=== PATIENT | male | born 1990 | race Caucasian/White ===

== ENCOUNTER 2019-04-07 14:21 | Emergency (ER) | payer OTHER ==
[2019-04-07 14:45] VITALS: BP 118/71
--- NOTE | 2019-04-07 14:52 | UC ---
Abdominal Pain Male HPI - HPI Summary HPI Summary: 28 yo male presents with green stools. He tells me that over the last 2-3 days he has noticed that his stool has a green tint. Today his symptoms resolved and there was no more green tint. He has a BM at least twice a day. He is most concerned that this is due to his work. 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 He has worked there a year and a half with no issues, but states he remembers months ago a co- worker that had a "stomach infection from the chemicals at work". He denies fever, chills, recent illness, new medications, abdominal pain, n/v/d/c, dysuria. He states his diet has not changed or increased in leafy green foods recently. He does mention that over the last 4-5 years he feels his urine stream is weaker than before. He has never had this evaluated, but is concerned because his grandfather had prostate cancer. - History of Current Complaint Chief Complaint: UCGI Stated Complaint: STOOL Time Seen by Provider: 04/07/19 14:52 Hx Obtained From: Patient Onset/Duration: Sudden Onset Severity Currently: None Pain Intensity: 0 - Allergies/Home Medications Allergies/Adverse Reactions: Allergies Allergy/AdvReac Type Severity Reaction Status Date / Time Sulfa (Sulfonamide Allergy Anaphylatic Verified 04/07/19 14:42 Antibiotics) Shock Home Medications: Home Medications NK [No Home Medications Reported] 04/07/19 [History Confirmed 04/07/19] PMH/Surg Hx/FS Hx/Imm Hx - Additional Past Medical History Additional PMH: None - Surgical History Surgical History: Yes Surgery Procedure, Year, and Place: ear tubes - Family History Known Family History: Positive: Other - Prostate cancer - Social History Occupation: Employed Full-time Lives: With Family Alcohol Use: None Substance Use Type: None Smoking Status (MU): Light Every Day Tobacco Smoker Amount Used/How Often: 1/2ppd Review of Systems All Other Systems Reviewed And Are Negative: Yes Constitutional: Positive: Negative Skin: Positive: Negative Respiratory: Positive: Negative Cardiovascular: Positive: Negative Gastrointestinal: Positive: Other - Green stool Genitourinary: Positive: Other - Weak urine stream Neurovascular: Positive: Negative Neurological: Positive: Negative Psychological: Positive: Negative Physical Exam - Summary Physical Exam Summary: GENERAL: NAD. WDWN. No pain distress. SKIN: No rashes, sores, lesions, or open wounds. NECK: Supple. Nontender. No lymphadenopathy. CHEST: CTAB. No r/r/w. No accessory muscle use. Breathing comfortably and in no distress. CV: RRR. Without m/r/g. Pulses intact. Cap refill <2seconds ABDOMEN: Soft. NTTP. No distention or guarding. No CVA tenderness. Bowel sounds present NEURO: Alert. PSYCH: Age appropriate behavior. Triage Information Reviewed: Yes Vital Signs: Initial Vital Signs Temp 98.9 F 04/07/19 14:38 Pulse 75 04/07/19 14:38 Resp 18 04/07/19 14:38 BP 118/71 04/07/19 14:38 Pulse Ox 100 04/07/19 14:38 Vital Signs Reviewed: Yes Abd Pain Male Course/Dx - Course Course Of Treatment: He is well appearing, afebrile, and exam is WNL. His green stools have improved today and he states his stool was normal this morning. Suspect a viral illness or diet related etiology. Will have him complete stool cultures for further eval. Regarding his years of subjective weak urine stream, will refer him to Urology for further eval. - Differential Dx/Clinical Impression Provider Diagnosis: Green stool, Weak urine stream Discharge - Sign-Out/Discharge Documenting (check all that apply): Patient Departure All imaging exams completed and their final reports reviewed: No Studies - Discharge Plan Condition: Stable Disposition: HOME Referrals: No Primary Care Phys,NOPCP [Primary Care Provider] - Mervin Thurston MD [Medical Doctor] - As Soon As Possible Additional Instructions: If you develop a fever, shortness of breath, chest pain, new or worsening symptoms - please call your PCP or go to the ED immediately. 1) Please complete the stool cultures as soon as possible 2) I recommend that you call Urology at the number below to schedule an appointment regarding your decreased urine stream - Billing Disposition and Condition Condition: STABLE Disposition: Home - Attestation Statements Provider Attestation: I was available for consult. This patient was seen by the YONATAN. The patient was not presented to, seen by, or examined by me. -Sherrie
== END 2019-04-07 15:30 | disposition home or self-care (01) ==
LOC: UCEAST 14:21
DX: R19.5 Other fecal abnormalities (principal); R39.12 Poor urinary stream; Z80.42 Family history of malignant neoplasm of prostate; F17.210 Nicotine dependence, cigarettes, uncomplicated
CPT/HCPCS: 99211; G0463

== ENCOUNTER 2019-09-25 09:54 | Emergency (ER) | payer OTHER ==
[2019-09-25 10:14] VITALS: BP 107/72
--- NOTE | 2019-09-25 10:42 | UC ---
Back Pain HPI - HPI Summary HPI Summary: 28 yo male presents with back pain. He tells me that over the last 2 weeks he has been having pain in his left lower back that is worse with bending over and lifting. He is concerned it is his kidney. He has not taken anything OTC for his symptoms. Denies radiation of pain, numbness, tingling, saddle anesthesia, loss of bowel/bladder control, dysuria, hematuria, or specific injury. He states that he does a lot of lifting at work, but does not recall a specific injury. When asked why he is concerned it is his kidney, he states because the pain is "in that area". Has never had any kidney stones or issues in the past. Denies abdominal pain. - History of Current Complaint Chief Complaint: UCGU Stated Complaint: BACK PAIN Time Seen by Provider: 09/25/19 10:42 Hx Obtained From: Patient Onset/Duration: Gradual Onset Severity Initially: Moderate Severity Currently: Moderate Pain Intensity: 7 Pain Scale Used: 0-10 Numeric - Allergies/Home Medications Allergies/Adverse Reactions: Allergies Allergy/AdvReac Type Severity Reaction Status Date / Time Sulfa (Sulfonamide Allergy Anaphylatic Verified 09/25/19 10:07 Antibiotics) Shock PMH/Surg Hx/FS Hx/Imm Hx - Additional Past Medical History Additional PMH: None - Surgical History Surgical History: Yes Surgery Procedure, Year, and Place: ear tubes - Family History Known Family History: Positive: Other - Prostate cancer - Social History Occupation: Employed Full-time Lives: With Family Alcohol Use: None Substance Use Type: None Smoking Status (MU): Light Every Day Tobacco Smoker Amount Used/How Often: 1/2ppd Review of Systems All Other Systems Reviewed And Are Negative: No Constitutional: Positive: Negative Skin: Positive: Negative Respiratory: Positive: Negative Cardiovascular: Positive: Negative Gastrointestinal: Positive: Negative Genitourinary: Positive: Negative Neurovascular: Positive: Negative Musculoskeletal: Positive: Other: - Left low back pain Neurological: Positive: Negative Psychological: Positive: Negative Physical Exam - Summary Physical Exam Summary: GENERAL: NAD. WDWN. No pain distress. SKIN: No rashes, sores, lesions, or open wounds. NECK: Supple. FROM. Nontender. No lymphadenopathy. CHEST: CTAB. No r/r/w. No accessory muscle use. Breathing comfortably and in no distress. CV: RRR. Pulses intact. Cap refill <2seconds ABDOMEN: Soft. NTTP. Bowel sounds present. No CVA tenderness b/l MSK: LEFT LOWER BACK: NTTP. Pain at site with flexion and extension of spine. Positive SLR on LEFT for low back pain without radiation. Strength 5/5 B/L LEs including dorsiflexion and plantar flexion. FROM B/L LEs. No edema. NEURO: Alert. Sensations intact B/L LEs L3-S1. Reflexes intact PSYCH: Age appropriate behavior. Triage Information Reviewed: Yes Vital Signs: Initial Vital Signs Temp 0 F 09/25/19 10:03 Pulse 78 09/25/19 10:03 Resp 18 09/25/19 10:03 BP 107/72 09/25/19 10:03 Pulse Ox 100 09/25/19 10:03 Laboratory Tests 09/25/19 10:43 POC Urine Color Ivone POC Urine Clarity Clear POC Urine pH 5.5 POC Ur Specif Parlin >= 1.030 POC Urine Protein Negative POC Ur Glucose (UA) Negative POC Urine Ketones Negative POC Urine Blood Negative POC Urine Nitrite Negative POC Urine Bilirubin Negative POC Urine Urobilinogen 0.2 POC U Leukocyte Esteras Negative Vital Signs (72 hours) 09/25/19 09/25/19 10:03 10:44 Temperature 0 F 98.4 F Pulse Rate 78 Respiratory 18 Rate Blood Pressure 107/72 (mmHg) O2 Sat by Pulse 100 Oximetry Vital Signs Reviewed: Yes Back Pain Course/Dx - Course Course Of Treatment: UA negative. Suspect low back strain. Offered XR, PT, and/or toradol in the clinic but pt declined. I have a low suspicion that this is kidney/ureter related as his UA is normal, he has no dysuria or renal hx, and has no CVA pain as his "kidney pain" appears to be more lower back in nature. Discussed gentle ROM, applying heat, and will rx for naproxen. Advised to f/u with PCP if symptoms do not improve - Differential Dx/Diagnosis Provider Diagnosis: Low back pain Discharge ED - Sign-Out/Discharge Documenting (check all that apply): Patient Departure All imaging exams completed and their final reports reviewed: No Studies - Discharge Plan Condition: Stable Disposition: HOME Prescriptions: Naproxen [Naproxen 500 mg tab] 500 mg PO BID PRN #30 tablet.dr LYLE Reason: Pain - Mild Patient Education Materials: Low Back Strain (ED), Lower Back Exercises (ED) Forms: *Work Release Referrals: No Primary Care Phys,NOPCP [Primary Care Provider] - Additional Instructions: If you develop a fever, shortness of breath, chest pain, new or worsening symptoms - please call your PCP or go to the ED immediately. - Billing Disposition and Condition Condition: STABLE Disposition: Home
== END 2019-09-25 11:11 | disposition home or self-care (01) ==
LOC: UCEAST 09:54
DX: M54.5 Low back pain (principal); F17.210 Nicotine dependence, cigarettes, uncomplicated; Z88.2 Allergy status to sulfonamides
CPT/HCPCS: 81003; 99212; G0463